=== PATIENT | male | born 1960 | race Caucasian/White ===

== ENCOUNTER 2016-11-02 16:41 | Emergency (ER) | payer BC, OTHER ==
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
[2016-11-02] MEDS ORDERED: Diphtheria,Pertussis(Acell),Tetanus Vaccine 0.5 ML Syringe IM ONE (17:21)
[2016-11-02 19:12] VITALS: BP 171/82
--- NOTE | 2016-11-03 09:58 | CR ---
EXAM DATE: 11/02/16 PATIENT'S AGE: 56 Patient: KARLA DAVIDSON Facility: [place], [place] Site . Site : 1960 Study: XRay Chest [id number]/12/2017 6:17:14 PM Ordering Physician: Doctor Whitlock Final Report: INDICATION: CHEST PAIN, SHORTNESS OF BREATH. TECHNIQUE: Chest radiograph 2 views COMPARISON: None FINDINGS: Cardiovascular and mediastinum: The heart silhouette is normal in size and morphology. The mediastinum is normal in appearance. Lungs and pleural spaces: Both lungs are unremarkable in appearance. No sign of pleural effusion seen. No pneumothorax is identified. Bones and soft tissues: No significant findings. IMPRESSION: 1. No acute cardiopulmonary disease is seen. Dictated by Josh Lopez MD @ 11/02/2016 6:41:56 PM Dictated by: Josh Lopez MD @ 11/02/2016 18:42:04 (Electronic Signature) Report Signed by Proxy. FRANCESCA
--- NOTE | 2016-11-03 09:59 | CR ---
EXAM DATE: 11/02/16 PATIENT'S AGE: 56 Patient: KARLA DAVIDSON Facility: [place], [place] : 1960 Study: XRay Chest RIBS [id number]/12/2017 6:21:01 PM Ordering Physician: JULIETTE BURRIS MD Final Report: INDICATION: Rib pain. TECHNIQUE: Rib series 3 views COMPARISON: None FINDINGS: No definite acute rib fractures are identified. No osseous rib lesions noted. The visualized lungs and pleural space are unremarkable. No pneumothorax is seen. IMPRESSION: 1. Unremarkable appearance of the visualized ribs. Dictated by Josh Lopez MD @ 11/02/2016 6:44:45 PM Dictated by: Josh Lopez MD @ 11/02/2016 18:44:48 (Electronic Signature) Report Signed by Proxy. [facility]
== END 2016-11-02 19:15 | disposition home or self-care (01) ==
LOC: MW.ED 16:41
DX: R07.89 Other chest pain (principal); S80.812D Abrasion, left lower leg, subsequent encounter; S80.212D Abrasion, left knee, subsequent encounter; Z98.890 Other specified postprocedural states; Z23 Encounter for immunization; V86.59XD Driver of other special all-terrain or other off-road motor vehicle injured in nontraffic accident, subsequent encounter
CPT/HCPCS: 71020; 71020-26; 71100-26-LT; 71100-LT; 90471; 90715; 99282; 99283-25

== ENCOUNTER 2017-02-14 08:12 | Emergency (ER) | payer BC ==
[2017-02-14] MEDS ORDERED: Ketorolac 60 MG/2 ML SDV IM ONE (09:25)
[2017-02-14] MEDS ORDERED: Acetaminophen/HYDROcodone 325-7.5 MG Tab PO ONE (09:26)
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
[2017-02-14 11:05] VITALS: BP 151/94
--- NOTE | 2017-02-15 16:17 | CR ---
EXAM DATE: 02/14/17 PATIENT'S AGE: 56 Patient: KARLA DAVIDSON Facility: [place], [place] Site . Site : 1960 Study: XRay Chest [id number]/25/2017 9:49:17 AM Ordering Physician: Doctor Whitlock Final Report: INDICATION: PAIN, PAIN IN LOWER RIBS INDICATION: Pain in the lower ribs. TECHNIQUE: Chest 2 views. COMPARISON: 11/18/2016. FINDINGS: Cardiovascular and mediastinum: Heart size and vasculature are normal in caliber and appearance. Mediastinum is within normal limits. Lungs and pleural spaces: Lungs are clear. No sign of infiltrate or mass. No sign of pleural effusion. No pneumothorax. Bones and soft tissues: No significant findings. IMPRESSION: Lungs are clear. Dictated by Rik Springer MD @ 02/14/2017 9:56:51 AM Dictated by: Rik Springer MD @ 02/14/2017 09:57:00 (Electronic Signature) Report Signed by Proxy. [facility]
== END 2017-02-14 10:57 | disposition home or self-care (01) ==
LOC: MW.ED 08:12
DX: S29.9XXA Unspecified injury of thorax, initial encounter (principal); J40 Bronchitis, not specified as acute or chronic; F17.210 Nicotine dependence, cigarettes, uncomplicated; X58.XXXA Exposure to other specified factors, initial encounter
CPT/HCPCS: 71020; 87804; 93005; 96372; 99284; A9270; J1885

== ENCOUNTER 2019-01-09 22:09 | Emergency (ER) | payer BC ==
[2019-01-09] MEDS ORDERED: Ketorolac 30 MG/ML SDV IVPUSH ONE (22:31)
[2019-01-09] MEDS ORDERED: Sodium Chloride 0.9% 1,000 ML IV ONE (22:31)
--- NOTE | 2019-01-09 22:46 | EDM.PDOC ---
ED HPI GENERAL MEDICAL PROBLEM - General Chief Complaint: General Stated Complaint: ABDOMINAL PAIN Time Seen by Provider: 01/09/19 22:27 - History of Present Illness INITIAL COMMENTS - FREE TEXT/NARRATIVE: HISTORY AND PHYSICAL: History of present illness: Patient's 58-year-old white male with history of left inguinal hernia who is scheduled reevaluation by general surgery tomorrow to schedule surgery presents with concern of abdominal pain he states his hernia has been in and out in that he has been able to reduce it but now has pain meds across his lower abdomen and pelvis was quite anxious. There's been no fever chills nausea vomiting or other complaints Review of systems: As per history of present illness and below otherwise all systems reviewed and negative. Past medical history: As per history of present illness and as reviewed below otherwise noncontributory. Surgical history: As per history of present illness and as reviewed below otherwise noncontributory. Social history: No reported history of drug or alcohol abuse. Family history: As per history of present illness and as reviewed below otherwise noncontributory. Physical exam: HEENT: Atraumatic, normocephalic, pupils reactive, negative for conjunctival pallor or scleral icterus, mucous membranes moist, throat clear, neck supple, nontender, trachea midline. Lungs: Clear to auscultation, breath sounds equal bilaterally, chest nontender. Heart: S1S2, regular, negative for clicks, rubs, or JVD. Abdomen: Soft, nondistended, nontender. Negative for masses or hepatosplenomegaly. Negative for costovertebral tenderness. Pelvis: Stable nontender. Genitourinary: Unremarkable no evidence of incarcerated hernia Rectal: Deferred. Extremities: Atraumatic, negative for cords or calf pain. Neurovascular unremarkable. Neuro: Awake, alert, oriented. Cranial nerves II through XII unremarkable. Cerebellum unremarkable. Motor and sensory unremarkable throughout. Exam nonfocal. Diagnostics: CBC CMP UA CT abdomen and pelvis Therapeutics: saline 1 L bolus Toradol 30 mg IV Impression: #1 abdominal/pelvic pain Definitive disposition and diagnosis as appropriate pending reevaluation and review of above. left groin Pain Score (Numeric/FACES): 6 - Related Data Allergies Allergy/AdvReac Type Severity Reaction Status Date / Time No Known Allergies Allergy Verified 01/09/19 22:12 Home Meds: Home Meds Albuterol Sulfate [Proair Hfa] 1 - 2 puff INH ASDIRECTED PRN 12/28/17 [History] Fluticasone/Salmeterol [Advair 250-50 Diskus] 1 inhalation INH ASDIRECTED [History] Varenicline Tartrate [Chantix] 1 tab PO BID 12/28/17 [History] hydroCHLOROthiazide [Hydrochlorothiazide] 25 mg PO DAILY 12/28/17 [History] Past Medical History - Past Health History Medical/Surgical History: Denies Medical/Surgical History HEENT History: Reports: None Cardiovascular History: Reports: Hypertension Respiratory History: Reports: COPD, Sleep Apnea Other Respiratory History: states does not always use his CPAP, was instructed to bring his CPAP machine in with him the day of surgery Gastrointestinal History: Reports: Diverticulosis, Hiatal Hernia, Other (See Below) Other Gastrointestinal History: hx of esophagoscopy transoral flexible with foreign body removal Genitourinary History: Reports: None Musculoskeletal History: Reports: Fracture Neurological History: Reports: None Psychiatric History: Reports: None Endocrine/Metabolic History: Reports: Obesity/BMI 30+ Other Endocrine/Metabolic History: prediabetic Hematologic History: Reports: None Immunologic History: Reports: None Oncologic (Cancer) History: Reports: None Dermatologic History: Reports: Other (See Below) Other Dermatologic History: presently has rash to left ankle - Infectious Disease History Infectious Disease History: Reports: Chicken Pox - Past Surgical History HEENT Surgical History: Reports: Other (See Below) Other HEENT Surgeries/Procedures: right ear surgery Respiratory Surgical History: Reports: None GI Surgical History: Reports: Colonoscopy, EGD Male Surgical History: Reports: None Endocrine Surgical History: Reports: None Neurological Surgical History: Reports: Lumbar Spine Other Neurological Surgeries/Procedures: back surgery x2 Musculoskeletal Surgical History: Reports: ORIF Other Musculoskeletal Surgeries/Procedures:: left ankle surgery with plates and screws, hardware removal, back surgeries x2 Oncologic Surgical History: Reports: None Dermatological Surgical History: Reports: None Social & Family History - Family History Family Medical History: Noncontributory - Tobacco Use Smoking Status *Q: Current Every Day Smoker Years of Tobacco use: 30 Packs/Tins Daily: 1 - Caffeine Use Caffeine Use: Reports: Coffee - Recreational Drug Use Recreational Drug Use: No ED ROS GENERAL - Review of Systems Review Of Systems: Comprehensive ROS is negative, except as noted in HPI. ED EXAM, GENERAL - Physical Exam Exam: See Below (The dictation) Course - Vital Signs Text/Narrative:: Dr. Hernandez was kind enough to consult and see the patient emergency department please see his consult patient requests discharge and follow-up scheduled appointment today with Dr. Bolaños Last Recorded V/S: Last Vital Signs Temp 35.7 C 01/09/19 22:13 Pulse 90 01/09/19 22:13 Resp 18 01/09/19 22:13 BP 144/82 H 01/09/19 22:13 Pulse Ox 94 L 01/09/19 22:13 - Orders/Labs/Meds Labs: Laboratory Tests 01/09/19 01/09/19 01/09/19 Range/Units 22:35 22:35 22:35 WBC 9.55 (4.0-11.0) K/uL RBC 5.11 (4.50-5.90) M/uL Hgb 16.3 (13.0-17.0) g/dL Hct 47.2 (38.0-50.0) % MCV 92.4 (80.0-98.0) fL MCH 31.9 (27.0-32.0) pg MCHC 34.5 (31.0-37.0) g/dL RDW Std Deviation 42.5 (28.0-62.0) fl RDW Coeff of Hakeem 13 (11.0-15.0) % Plt Count 223 (150-400) K/uL MPV 8.80 (7.40-12.00) fL Neut % (Auto) 56.7 (48.0-80.0) % Lymph % (Auto) 31.7 (16.0-40.0) % Mccormick % (Auto) 9.6 (0.0-15.0) % Eos % (Auto) 1.8 (0.0-7.0) % Baso % (Auto) 0.2 (0.0-1.5) % Neut # (Auto) 5.4 (1.4-5.7) K/uL Lymph # (Auto) 3.0 H (0.6-2.4) K/uL Mccormick # (Auto) 0.9 H (0.0-0.8) K/uL Eos # (Auto) 0.2 (0.0-0.7) K/uL Baso # (Auto) 0.0 (0.0-0.1) K/uL Nucleated RBC % 0.0 /100WBC Nucleated RBCs # 0 K/uL INR 0.96 Sodium 137 (136-148) mmol/L Potassium 3.6 (3.5-5.1) mmol/L Chloride 101 (98-107) mmol/L Carbon Dioxide 26.0 (21.0-32.0) mmol/L BUN 16 (7.0-18.0) mg/dL Creatinine 1.1 (0.8-1.3) mg/dL Est Cr Clr Drug Dosing 101.82 mL/min Estimated GFR (MDRD) > 60.0 ml/min Glucose 139 H (74-106) mg/dL Calcium 9.0 (8.5-10.1) mg/dL Total Bilirubin 0.5 (0.2-1.0) mg/dL AST 18 (15-37) IU/L ALT 35 (14-63) IU/L Alkaline Phosphatase 79 (46-116) U/L Total Protein 7.2 (6.4-8.2) g/dL Albumin 3.9 (3.4-5.0) g/dL Globulin 3.3 (2.6-4.0) g/dL Albumin/Globulin Ratio 1.2 (0.9-1.6) Lipase 111 (73-393) U/L Urine Color Urine Appearance Urine pH (5.0-8.0) Ur Specific [place] (1.001-1.035) Urine Protein (NEGATIVE) mg/dL Urine Glucose (UA) (NEGATIVE) mg/dL Urine Ketones (NEGATIVE) mg/dL Urine Occult Blood (NEGATIVE) Urine Nitrite (NEGATIVE) Urine Bilirubin (NEGATIVE) Urine Urobilinogen (<2.0) EU/dL Ur Leukocyte Esterase (NEGATIVE) 01/10/19 Range/Units 00:44 WBC (4.0-11.0) K/uL RBC (4.50-5.90) M/uL Hgb (13.0-17.0) g/dL Hct (38.0-50.0) % MCV (80.0-98.0) fL MCH (27.0-32.0) pg MCHC (31.0-37.0) g/dL RDW Std Deviation (28.0-62.0) fl RDW Coeff of Hakeem (11.0-15.0) % Plt Count (150-400) K/uL MPV (7.40-12.00) fL Neut % (Auto) (48.0-80.0) % Lymph % (Auto) (16.0-40.0) % Mccormick % (Auto) (0.0-15.0) % Eos % (Auto) (0.0-7.0) % Baso % (Auto) (0.0-1.5) % Neut # (Auto) (1.4-5.7) K/uL Lymph # (Auto) (0.6-2.4) K/uL Mccormick # (Auto) (0.0-0.8) K/uL Eos # (Auto) (0.0-0.7) K/uL Baso # (Auto) (0.0-0.1) K/uL Nucleated RBC % /100WBC Nucleated RBCs # K/uL INR Sodium (136-148) mmol/L Potassium (3.5-5.1) mmol/L Chloride (98-107) mmol/L Carbon Dioxide (21.0-32.0) mmol/L BUN (7.0-18.0) mg/dL Creatinine (0.8-1.3) mg/dL Est Cr Clr Drug Dosing mL/min Estimated GFR (MDRD) ml/min Glucose (74-106) mg/dL Calcium (8.5-10.1) mg/dL Total Bilirubin (0.2-1.0) mg/dL AST (15-37) IU/L ALT (14-63) IU/L Alkaline Phosphatase (46-116) U/L Total Protein (6.4-8.2) g/dL Albumin (3.4-5.0) g/dL Globulin (2.6-4.0) g/dL Albumin/Globulin Ratio (0.9-1.6) Lipase (73-393) U/L Urine Color YELLOW Urine Appearance CLEAR Urine pH 6.0 (5.0-8.0) Ur Specific [place] 1.015 (1.001-1.035) Urine Protein NEGATIVE (NEGATIVE) mg/dL Urine Glucose (UA) NEGATIVE (NEGATIVE) mg/dL Urine Ketones NEGATIVE (NEGATIVE) mg/dL Urine Occult Blood NEGATIVE (NEGATIVE) Urine Nitrite NEGATIVE (NEGATIVE) Urine Bilirubin NEGATIVE (NEGATIVE) Urine Urobilinogen 0.2 (<2.0) EU/dL Ur Leukocyte Esterase NEGATIVE (NEGATIVE) Meds: Medications Discontinued Medications Generic Name Dose Route Start Last Admin Trade Name Mike PRN Reason Stop Dose Admin Sodium Chloride 1,000 mls @ 999 mls/hr 01/09/19 22:31 01/09/19 22:47 Normal Saline IV 01/09/19 23:31 999 mls/hr STAT ONE Administration Ketorolac Tromethamine 30 mg 01/09/19 22:31 01/09/19 22:47 Toradol IVPUSH 01/09/19 22:32 30 mg ONETIME ONE Administration Departure - Departure Time of Disposition: 01:33 Disposition: Home, Self-Care 01 Condition: Good Clinical Impression: Inguinal hernia - Discharge Information Referrals: Shania Martinez MD [Primary Care Provider] - Forms: ED Department Discharge Additional Instructions: The following information is given to patients seen in the emergency department who are being discharged to home. This information is to outline your options for follow-up care. We provide all patients seen in our emergency department with a follow-up referral. The need for follow-up, as well as the timing and circumstances, are variable depending upon the specifics of your emergency department visit. If you don't have a primary care physician on staff, we will provide you with a referral. We always advise you to contact your personal physician following an emergency department visit to inform them of the circumstance of the visit and for follow-up with them and/or the need for any referrals to a consulting specialist. The emergency department will also refer you to a specialist when appropriate. This referral assures that you have the opportunity for followup care with a specialist. All of these measure are taken in an effort to provide you with optimal care, which includes your followup. Under all circumstances we always encourage you to contact your private physician who remains a resource for coordinating your care. When calling for followup care, please make the office aware that this follow-up is from your recent emergency room visit. If for any reason you are refused follow-up, please contact the [facility] emergency department at and asked to speak to the emergency department charge nurse. [facility] - General Surgery Professional [address], [address] [place] [address] Keep scheduled appointment tomorrow as discussed return as needed as discussed
[2019-01-09 23:16] LABS: BLOOD UREA NITROGEN,BUN 16 mg/dL (7.0-18.0); CHLORIDE,CL 101 mmol/L (98-107); GLUCOSE RANDOM 139 mg/dL (74-106); LIPASE 111 U/L (73-393); POTASSIUM,K 3.6 mmol/L (3.5-5.1); SODIUM,NA 137 mmol/L (136-148)
--- NOTE | 2019-01-09 23:40 | CT ---
INDICATION: abdominal pain, hx of hernia CT ABDOMEN AND PELVIS WITHOUT CONTRAST TECHNIQUE: Multidetector CT imaging was performed through the abdomen and pelvis without intravenous contrast administration. Coronal and sagittal reconstructions were generated. COMPARISON: None. FINDINGS: Lower chest: Lung bases are clear. Liver: 1.5 centimeters cyst in the left hepatic lobe. Diffuse fatty infiltration of liver. Gallbladder and bile ducts: No gallbladder wall thickening or calcified gallstones. No biliary dilation identified. Pancreas: Unremarkable. Spleen: Normal. Adrenals: No nodules or masses. Kidneys, ureters, and urinary bladder: No urinary tract stones identified. No renal masses or hydronephrosis. No bladder mass or definite wall thickening. Gastrointestinal tract and abdominal wall: Small hiatal hernia. Normal caliber small bowel without wall thickening or obstruction. The appendix is normal. There are multiple colon diverticula, without evidence of diverticulitis. A short segment of the proximal sigmoid colon extends into a left inguinal hernia, without bowel strangulation or obstruction. Vascular structures: Normal caliber abdominal aorta with mild atherosclerotic calcifications. Peritoneum: No free air, abscess, or significant free fluid. Lymph nodes: No pathologically enlarged nodes identified. Reproductive organs: No pelvic masses. Bones: Spinal degenerative changes. IMPRESSION: 1. Left inguinal hernia containing a short segment of the sigmoid colon, without strangulation or obstruction. 2. Colon diverticulosis without evidence of diverticulitis. 3. No urinary tract stones or hydronephrosis. 4. Nonacute addition findings as detailed above. HODA WU MD [employer] Dictated by Sreedhar Wu MD @ 01/09/2019 11:36:52 PM Dictated by: Sreedhar Wu MD @ 01/09/2019 23:38:13 (Electronically Signed)
[2019-01-10 01:37] VITALS: BP 163/94; PULSE 78
--- NOTE | 2019-01-10 08:04 | CONS ---
DATE OF CONSULTATION: 01/10/2019 DATE OF : 1960 PRIMARY CARE PHYSICIAN: CHERYL JULES MD REFERRING PHYSICIAN: Fritz Hoskins M.D. REASON FOR CONSULTATION: Left inguinal hernia with bowel from CAT scan. HISTORY OF PRESENT ILLNESS: The patient is a 58-year-old obese gentleman, known to have a left inguinal hernia for at least 8 months per patient, and easily reduced in and out. The patient remarked that he has been told by his primary care provider and a surgeon, Dr. Bolaños, that he has a left inguinal hernia and is also scheduled to see Dr. Bolaños in about 24 hours for surgical consult. However, in the last 1 to 2 days, the patient started feeling pain in the left inguinal area, and patient remarked the pain is getting worse and sought help in the emergency room. The patient remarked at that time the pain was 10/10 and very very painful but denied trauma, nausea, vomiting, or diarrhea, and denied prior episode, and denied anything bulging. The patient's last meal was several hours before the ER visit, and last bowel movement was well-formed and was on the day of the ER visit. Currently, the patient denied pain, denied nausea and vomiting. PAST MEDICAL HISTORY: Significant for hypertension. Patient denied diabetes, HI, CVA. PAST SURGICAL HISTORY: Multiple back surgeries and multiple left ankle orthopedic procedures, and endoscopy. ALLERGIES: Please refer to nursing for details. MEDICATION: Please refer to nursing for details. SOCIAL HISTORY: The patient is a smoker for a long time. Denies alcohol use. FAMILY HISTORY: Noncontributory. PHYSICAL EXAMINATION: GENERAL: A very pleasant and nice gentleman, smiled to the doctor, moving comfortably and freely in the bed, but very anxious, asked a lot of questions. HEENT: Normocephalic and atraumatic. Sclerae are anicteric. LUNGS: Clear to auscultation. HEART: Regular rate and rhythm. ABDOMEN: Soft, but distended. No tender midline abdominal structure. On inguinal examination, the patient's right inguinal area, no bulging mass, nontender, and nothing to suggest a right inguinal hernia. Left inguinal hernia, the external ring is enlarged, and upon Valsalva, there is a bulging mass towards the examiner's finger, but upon stopping the Valsalva exertion, the mass goes back by itself, and the whole process is nontender. The patient has 2 testes, bilaterally symmetrical, descending. He has some questions. LABORATORY DATA: Upon examination, white count is normal and CAT scan shows small segment of sigmoid colon in the hernia. No obstruction. No strangulation. No bowel wall thickening. IMPRESSION: Asymptomatic left inguinal hernia, non-incarcerated. The patient given assurance. Okay to go back home and keep his appointment with Dr. Bolaños for possible surgical intervention. If symptoms in left inguinal area recur and pain intensifies or any change in clinical situation, the patient should seek medical attention for strangulation or incarceration, albeit those situations are extremely rare in the patient's current situation, where the hernia is only appreciated with patient's Valsalva and is reducible without even an effort. The patient agreed to the arrangement, and Dr. Hoskins also agreed to arrangement. As always thank you for the kind referral. KAYLEY / MARK /[id number]
== END 2019-01-10 01:49 | disposition home or self-care (01) ==
LOC: MW.ED 22:09
DX: K40.90 Unilateral inguinal hernia, without obstruction or gangrene, not specified as recurrent (principal); I10 Essential (primary) hypertension; J44.9 Chronic obstructive pulmonary disease, unspecified; E66.9 Obesity, unspecified; Z68.26 Body mass index [BMI] 26.0-26.9, adult; F17.210 Nicotine dependence, cigarettes, uncomplicated; Z79.899 Other long term (current) drug therapy
CPT/HCPCS: 36415; 74176; 80053; 81003; 83690; 85025; 85610; 96361; 96374; 99284; J1885; J7040

== ENCOUNTER 2019-05-07 06:43 | Day surgery (SDC) | payer BC, OTHER ==
[~2019-05-07 06:43] MED LIST: Lactated Ringers 1,000 ML IV SCH; ceFAZolin 2 GM in Premix Bag 1 BAG IV SCH
[2019-05-07] MEDS ORDERED: Midazolam 1 MG/ML 2 ML SDV ONE (07:19)
[2019-05-07] MEDS ORDERED: Lidocaine 2% 5 ML SDV ONE (07:20)
[2019-05-07] MEDS ORDERED: Propofol 200 MG/20 ML SDV ONE (07:20)
[2019-05-07] MEDS ORDERED: fentaNYL 100 MCG/2 ML SDV ONE ×3 (07:20→08:18)
[2019-05-07] MEDS ORDERED: Albuterol/Ipratropium 3.0-0.5 MG/3 ML Neb Soln NEB ONE (07:21)
--- NOTE | 2019-05-07 07:26 | PCM.PREANE ---
Preanesthetic Assessment - Anesthesia/Transfusion/Family Hx Anesthesia History: Prior Anesthesia Without Reaction Other Type of Anesthesia Reaction Comment: reports he had no known problem , unsure of his parents hx: w/anesthesi Family History of Anesthesia Reaction: No Transfusion History: No Prior Transfusion(s) Intubation History: Unknown - Review of Systems General: No Symptoms Pulmonary: No Symptoms Cardiovascular: No Symptoms Gastrointestinal: No Symptoms Neurological: No Symptoms Other: Reports: None - Physical Assessment Vital Signs: Last Vital Signs Temp 36.5 C 05/07/19 06:50 Pulse 83 05/07/19 06:50 Resp 18 05/07/19 06:50 BP 144/86 H 05/07/19 06:50 Pulse Ox 94 L 05/07/19 06:50 Height: 6 ft Weight: 114.305 kg ASA Class: 3 Mental Status: Alert & Oriented x3 Airway Class: Mallampati = 3 Dentition: Reports: Normal Dentition (loose tooth x1 upper front) Thyro-Mental Finger Breadths: 3 Mouth Opening Finger Breadths: 2 (narrow mouth) ROM/Head Extension: Limited/Partial Lungs: Clear to Auscultation, Normal Respiratory Effort, Decreased Breath Sounds , Crackles Cardiovascular: Regular Rate, Regular Rhythm - Allergies Allergies/Adverse Reactions: Allergies Allergy/AdvReac Type Severity Reaction Status Date / Time No Known Allergies Allergy Verified 05/01/19 14:07 - Blood Blood Available: No - Anesthesia Plan Pre-Op Medication Ordered: None - Acknowledgements Anesthesia Type Planned: General Anesthesia Pt an Appropriate Candidate for the Planned Anesthesia: Yes Alternatives and Risks of Anesthesia Discussed w Pt/Guardian: Yes Pt/Guardian Understands and Agrees with Anesthesia Plan: Yes PreAnesthesia Questionnaire - Past Health History Medical/Surgical History: Denies Medical/Surgical History HEENT History: Reports: None Cardiovascular History: Reports: High Cholesterol, Hypertension, Other (See Below) (venous stasis) Respiratory History: Reports: COPD, Sleep Apnea Other Respiratory History: uses CPAP nightly Gastrointestinal History: Reports: Diverticulosis, Hiatal Hernia, Other (See Below) Other Gastrointestinal History: hx of esophagoscopy transoral flexible with foreign body removal, difficulty swallowing at times Genitourinary History: Reports: Other (See Below) Other Genitourinary History: has passed kidney stones Musculoskeletal History: Reports: Fracture Other Musculoskeletal History: hx of fx left ankle x2, fx ribs x4, fx clavicle and fingers Neurological History: Reports: None Psychiatric History: Reports: None Endocrine/Metabolic History: Reports: Obesity/BMI 30+ Other Endocrine/Metabolic History: on the border of prediabeties Hematologic History: Reports: None Immunologic History: Reports: None Oncologic (Cancer) History: Reports: None Dermatologic History: Reports: Venous Stasis Dermatitis Other Dermatologic History: left leg - Infectious Disease History Infectious Disease History: Reports: Chicken Pox - Past Surgical History Head Surgeries/Procedures: Reports: None HEENT Surgical History: Reports: Other (See Below) Other HEENT Surgeries/Procedures: right Tympanoplasty GI Surgical History: Reports: Colonoscopy, EGD Neurological Surgical History: Reports: Lumbar Spine Musculoskeletal Surgical History: Reports: ORIF Other Musculoskeletal Surgeries/Procedures:: ORIF left ankle- hardware removed - SUBSTANCE USE Smoking Status *Q: Current Every Day Smoker Tobacco Use Within Last Twelve Months: Cigarettes Days Per Week of Alcohol Use: 4 Number of Drinks Per Day: 3 Total Drinks Per Week: 12 Recreational Drug Use History: No - HOME MEDS Home Medications: Home Meds Albuterol Sulfate [Proair Hfa] 1 - 2 puff INH ASDIRECTED PRN 12/28/17 [History] Fluticasone/Salmeterol [Advair 250-50 Diskus] 1 inhalation INH BID 12/28/17 [ History] hydroCHLOROthiazide [Hydrochlorothiazide] 25 mg PO DAILY 12/28/17 [History] Varenicline Tartrate [Chantix] 1 mg PO BID 05/01/19 [History] - CURRENT (IN HOUSE) MEDS Current Meds: Current Medications Cefazolin Sodium/Dextrose 2 gm (/ Premix) 50 mls @ 100 mls/hr IV ONETIME NINA Lactated Ringer's (Ringers, Lactated) 1,000 mls @ 125 mls/hr IV ASDIRECTED NINA Last Admin: 05/07/19 07:09 Dose: 125 mls/hr
[2019-05-07] MEDS ORDERED: Albuterol/Ipratropium 3.0-0.5 MG/3 ML Neb Soln ONE (07:31)
[2019-05-07] MEDS ORDERED: ceFAZolin 1 GM Vial ONE (07:32)
[2019-05-07] MEDS ORDERED: Bupivacaine 0.5% 30 ML SDV ONE (07:32)
[2019-05-07] MEDS ORDERED: ceFAZolin/Dextrose,Iso-Osmotic 2 GM/50 ML Duplex Bag IV ONE (07:45)
[2019-05-07] MEDS ORDERED: Phenylephrine 1% 10 MG/ML SDV ONE (08:21)
[2019-05-07] MEDS ORDERED: Rocuronium 100 MG/10 ML Syringe ONE (09:56)
[2019-05-07] MEDS ORDERED: Ketorolac 30 MG/ML SDV ONE (10:07)
[2019-05-07] MEDS ORDERED: Ondansetron 4 MG/2 ML SDV ONE ×2 (10:09)
[2019-05-07] MEDS ORDERED: Sugammadex Sodium 200 MG/2 ML VIAL ONE (10:11)
[2019-05-07] MEDS ORDERED: Ondansetron 4 MG/2 ML SDV IVPUSH PRN (10:33)
[2019-05-07] MEDS ORDERED: Morphine 10 MG/ML Syringe IVPUSH PRN (10:33)
[2019-05-07] MEDS ORDERED: Acetaminophen/HYDROcodone 325-5 MG Tab PO PRN (10:33)
[2019-05-07] MEDS ORDERED: HYDROmorphone 2 MG/ML Syringe IVPUSH PRN (10:40)
[2019-05-07] MEDS ORDERED: fentaNYL 100 MCG/2 ML SDV IVPUSH PRN ×2 (10:40→12:05)
--- NOTE | 2019-05-07 10:41 | PCM.OPNOTE ---
- General Post-Op/Procedure Note Date of Surgery/Procedure: 05/07/19 Operative Procedure(s): Repair left inguinal hernia with extra-large Bard Perfix plug and patch. Repair right inguinal hernia with small Bard Perfix plug and patch Pre Op Diagnosis: Bilateral reducible inguinal hernia Post-Op Diagnosis: Bilateral reducible inguinal hernia Anesthesia Technique: General ET Tube Primary Surgeon: Shun Bolaños Fluid Replacement, Intraop: 1,500 EBL in mLs: 20 Condition: Good Free Text/Narrative:: DICTATION [id number] CPT CODE [id number]
[2019-05-07] MEDS ORDERED: Lactated Ringers 1,000 ML IV SCH (10:45)
--- NOTE | 2019-05-07 11:14 | PCM.POSTAN ---
POST ANESTHESIA ASSESSMENT - MENTAL STATUS Mental Status: Alert, Oriented - VITAL SIGNS Vital Signs: Last Vital Signs Temp 97.7 F 05/07/19 06:50 Pulse 72 05/07/19 11:10 Resp 13 05/07/19 11:10 BP 167/80 H 05/07/19 11:10 Pulse Ox 93 L 05/07/19 11:10 - RESPIRATORY Respiratory Status: Respiratory Rate WNL, Airway Patent, O2 Saturation Stable, Supplemental Oxygen Free Text/Narrative:: 1L per NC - CARDIOVASCULAR CV Status: Pulse Rate WNL, Blood Pressure Stable - GASTROINTESTINAL GI Status: No Symptoms - PAIN Pain Score: 0 - POST OP HYDRATION Hydration Status: Adequate & Stable - OBSERVATIONS Free Text/Narrative:: Pt stable for discharge to phase II recovery.
--- NOTE | 2019-05-07 12:04 | OR ---
SURGEON: Shun Bolaños M.D. DATE OF PROCEDURE: 05/07/2019 OPERATIONS PERFORMED: 1. Repair of left inguinal hernia with extra-large Bard PerFix plug and patch. 2. Repair of right inguinal hernia with small Bard PerFix plug and patch. PRIMARY SURGEON: Shun Bolaños MD ANESTHESIA: General endotracheal. ASA CLASSIFICATION: III. PREOPERATIVE DIAGNOSIS: Bilateral inguinal hernia, left larger than right. POSTOPERATIVE DIAGNOSIS: Bilateral inguinal hernia, left larger than right. ESTIMATED BLOOD LOSS: 20 mL. INTRAOPERATIVE FLUID REPLACEMENT: 1500 mL of crystalloid. DESCRIPTION OF PROCEDURE: The patient was taken to the operating room and placed on the operating table in the supine position. Time-out was called for appropriate identification of the patient and procedure. Thigh-high TEDs and sequential compression boots were placed. Both surgical sites had been marked and numbered prior to the patient entering the operating room. Following satisfactory attainment of general endotracheal anesthesia, the abdomen was prepped with DuraPrep solution. Sterile drapes were applied. Skin incisions were marked out in both inguinal creases for symmetry. The left side was approached first. The skin was infiltrated with 10 mL of 0.5% Marcaine solution. Skin incision was made and deepened through the subcutaneous tissue obtaining hemostasis with a combination of electrocautery and 3-0 Vicryl ties. Dissection was carried down to the external oblique fascia. This was opened in the direction of its fibers. The patient did have a large hernia sac and this was mobilized away from the cord, which was now encircled with a Rexford drain. The hernia sac was able to be reduced without difficulty and an extra-large Bard PerFix plug and patch were brought to the operating table. These were soaked in 1% Ancef solution. The plug was placed into the internal ring and secured with interrupted 0 Ethibond sutures. The patch was placed over this to reinforce the floor and secured medially and inferiorly to García ligament transitioning to the inguinal ligament and superiorly to the transversalis fascia. Care was taken to incorporate both plug and patch with at least two sutures. The wings were brought around the cord laterally and secured with a 0 Ethibond suture. All sutures except the lateral stitch were secured. The patient was given a Valsalva maneuver to 40 cm of water and the repair was solid. The wings were then tied down securing the lateral margin. Again, the wound was inspected for hemostasis. No bleeding was noted. The incision was irrigated with 1% Ancef solution. The cord was returned to its anatomic location. The external oblique was repaired with 3-0 Vicryl. Diamante fascia was closed with 3-0 Vicryl. Skin edges were reapproximated with subcuticular 4-0 Monocryl. Our attention was now turned to the right side. Again, the skin was infiltrated with 10 mL of 0.5% Marcaine solution. Skin incision was made and deepened through the subcutaneous tissue obtaining hemostasis with the use of electrocautery. Dissection was carried down to the external oblique fascia. This was again opened in the direction of its fibers. The cord was mobilized. The hernia sac was much smaller and was dissected away from the spermatic cord, which was again encircled with a Christina drain. The hernia sac was reduced and a small Bard PerFix plug and patch brought to the operating table. These were soaked in 1% Ancef solution. The plug was placed into the internal ring and again secured with 0 Ethibond sutures. The patch was placed over the floor to reinforce this and again repair carried out medial to lateral inferiorly to García ligament transitioning to the inguinal ligament and superiorly to transversalis fascia. Again, the wings were brought around the cord and secured with a 0 Ethibond suture. Once all sutures except the lateral suture were secured, the patient was again given a Valsalva maneuver to 40 cm of water. The repair was solid. The lateral suture was tied. The wound was again inspected for hemostasis and no bleeding was noted. The wound was irrigated with 1% Ancef solution. The cord was returned to its anatomic location. The external oblique fascia was closed with 3-0 Vicryl, Diamante fascia was closed with 3-0 Vicryl, and the skin edges again reapproximated with 4-0 subcuticular Monocryl. Both incisions were Steri-Stripped and dressed with sterile Tegaderm pads. Sponge, needle, and instrument counts were all correct. Following emergence from anesthesia and extubation, the patient was taken to recovery room in stable condition. MARGARET / MARK /[id number]
--- NOTE | 2019-05-07 14:40 | PCM48HPAN ---
Post Anesthesia Note - EVALUATION WITHIN 48HRS OF ANESTHETIC Vital Signs in Normal Range: Yes Patient Participated in Evaluation: Yes Respiratory Function Stable: Yes Airway Patent: Yes Cardiovascular Function Stable: Yes Hydration Status Stable: Yes Pain Control Satisfactory: Yes Nausea and Vomiting Control Satisfactory: Yes Mental Status Recovered: Yes Vital Signs: Last Vital Signs Temp 36.5 C 05/07/19 06:50 Pulse 68 05/07/19 12:15 Resp 14 05/07/19 12:15 BP 144/80 H 05/07/19 12:00 Pulse Ox 93 L 05/07/19 12:15 - COMMENTS/OBSERVATIONS Free Text/Narrative:: No anesthesia problems
[2019-05-07 15:02] VITALS: PULSE 86
[2019-05-07 18:10] VITALS: BP 164/74
== END 2019-05-07 17:50 | disposition home or self-care (01) ==
LOC: MW.SDS 06:43
PROVIDERS: ATTEND Surgery
DX: K40.20 Bilateral inguinal hernia, without obstruction or gangrene, not specified as recurrent (principal); J44.9 Chronic obstructive pulmonary disease, unspecified; E66.9 Obesity, unspecified; E78.5 Hyperlipidemia, unspecified; F17.210 Nicotine dependence, cigarettes, uncomplicated; I10 Essential (primary) hypertension; Z72.89 Other problems related to lifestyle; Z68.34 Body mass index [BMI] 34.0-34.9, adult; Z79.899 Other long term (current) drug therapy; Z79.51 Long term (current) use of inhaled steroids; Z98.890 Other specified postprocedural states
CPT/HCPCS: 49505; 94640; A9270; C1781; J0690; J1170; J1885; J2001; J2250; J2270; J2370; J2405; J2704; J3010; J3490; J7120; 00830; J7620-GY

== ENCOUNTER 2022-06-14 09:12 | Day surgery (SDC) | payer BC ==
[~2022-06-14 09:12] MED LIST changes: -ceFAZolin 2 GM in Premix Bag 1 BAG IV SCH
[2022-06-14] MEDS ORDERED: Propofol 200 MG/20 ML SDV ONE (11:00)
[2022-06-14] MEDS ORDERED: Lactated Ringers 1,000 ML IV SCH (12:00)
[2022-06-14 13:34] VITALS: BP 133/82; PULSE 69
== END 2022-06-14 12:20 | disposition home or self-care (01) ==
LOC: MW.SDS 09:12
PROVIDERS: ATTEND Surgery
DX: K29.50 Unspecified chronic gastritis without bleeding (principal); K44.9 Diaphragmatic hernia without obstruction or gangrene; K21.9 Gastro-esophageal reflux disease without esophagitis; J44.9 Chronic obstructive pulmonary disease, unspecified; E78.5 Hyperlipidemia, unspecified; I10 Essential (primary) hypertension; G47.33 Obstructive sleep apnea (adult) (pediatric); F17.210 Nicotine dependence, cigarettes, uncomplicated; Z79.899 Other long term (current) drug therapy; Z80.1 Family history of malignant neoplasm of trachea, bronchus and lung
CPT/HCPCS: 43239; J2704; J7120